=== PATIENT | female | born 1950 | race Caucasian/White ===

== ENCOUNTER 2017-11-02 07:30 | Inpatient (IN) | payer MEDICARE, MEDICAID ==
[~2017-11-02] VITALS: Ht 165.1 cm; Wt 95.3 kg
[~2017-11-02 07:30] MED LIST: ALBU2.5V13 NEB; CITA20TA11 PO; DICY20TA12 PO; FENO145T36 PO; FLUT1AER INH; LEVO125T8 PO; MAX25Tt PO; MONT10TA24 PO; NORCO10T PO; OMEG-107 PO; OMEP20TA5 PO
[2017-12-18 15:43] LABS: BASOPHILS % (AUTO) 0.2 % (0-1); EOSINOPHILS # (AUTO) 0.1 X10'3 (0-0.9); EOSINOPHILS % (AUTO) 0.7 % (0-6); LYMPHOCYTES # (AUTO) 0.9 X10'3 (1.1-4.8); LYMPHOCYTES % (AUTO) 10.2 % (21-51); MEAN CORPUSCULAR HEMOGLOBIN 29.7 PG (27.0-31.0); MEAN CORPUSCULAR HGB CONC 33.6 % (33.0-36.5); MEAN CORPUSCULAR VOLUME 88.4 FL (78-98); MEAN PLATELET VOLUME 7.2 FL (7.4-10.4); MONOCYTES # (AUTO) 0.4 X10'3 (0-0.9); MONOCYTES % (AUTO) 3.9 % (2-12); NEUTROPHILS # (AUTO) 7.9 X10'3 (1.8-7.7); PRE OP HEMATOCRIT 39.9 % (35.0-45.0); PRE OP HEMOGLOBIN 13.4 g/dL (12.0-16.0); PRE OP PLATELET COUNT 384 X10'3 (140-440); RED BLOOD COUNT 4.52 X10'6 (4.20-5.60); RED CELL DISTRIBUTION WIDTH 16.9 % (11.5-14.5)
[2017-12-18] MEDS ORDERED: MIRA25TA PO (15:46)
[2017-12-18 15:52] LABS: PRE OP PROTIME 10.8 SECONDS (9.0-12.0)
[2017-12-18 16:06] LABS: ALBUMIN 3.9 G/DL (3.4-5.0); ALBUMIN/GLOBULIN RATIO 1.2 (1.1-1.5); ALKALINE PHOSPHATASE 78 IU/L (46-116); BLOOD UREA NITROGEN 37 MG/DL (7-18); BUN/CREATININE RATIO 28.7 (6.6-38.0); CALCIUM 9.4 MG/DL (8.5-10.1); CHLORIDE 103 MMOL/L (99-107); CREATININE 1.29 MG/DL (0.40-0.90); PRE OP ALT 28 U/L (30-65); PRE OP ANION GAP 11 (8-16); PRE OP AST 10 U/L (10-37); PRE OP BILIRUB, TOTAL 0.3 MG/DL (0.0-1.0); PRE OP GLUCOSE 150 MG/DL (70-104); PRE OP POTASSIUM 4.7 MMOL/L (3.4-5.1); PRE OP SODIUM 141 MMOL/L (135-145); TOTAL CARBON DIOXIDE 27.5 MMOL/L (24-32); TOTAL PROTEIN 7.2 G/DL (6.4-8.2); eGFR 41 ML/MIN
[2017-12-24] MEDS ORDERED: FLUT16SP2 BOTHNARES (08:52)
[2017-12-24] MEDS ORDERED: ALLO300T2 PO (08:52)
[2017-12-25] VITALS (17 sets, daily range): BP systolic 115–159; BP diastolic 51–98
[2017-12-25] MEDS ORDERED: ringers solution, lacted 1,000 ML IV SCH ×3 (05:00→10:17)
[2017-12-25] MEDS ORDERED: vancomycin inj 1,500 MG in normal saline 300ml IV soln IV ONE (05:30)
[2017-12-25] MEDS ORDERED: ceFAZolin inj. 2,000 MG in dextrose 5%-water 100 ML IV ONE (05:30)
[2017-12-25] MEDS ORDERED: famotidine 20mg tablet PO ONE (05:30)
[2017-12-25] MEDS ORDERED: LIDOcaine 1% (10mg/ml) 2ml vial ONE (06:11)
[2017-12-25] MEDS ORDERED: ROPIVAcaine 0.5% (5mg/ml) 30ml vial ONE ×2 (06:51→07:38)
[2017-12-25] MEDS ORDERED: ketorolac trometh. 30mg/ml inj. ONE (06:51)
[2017-12-25] MEDS ORDERED: vancomycin 1,000mg inj ONE (06:51)
[2017-12-25] MEDS ORDERED: albuterol 2.5 MG/3 ML nebule NEB ONE (07:00)
[2017-12-25] MEDS ORDERED: sevoflurane 250ml liquid IH ONE (07:18)
[2017-12-25] MEDS ORDERED: MIDAZolam 5mg/5ml vial ONE (07:19)
[2017-12-25] MEDS ORDERED: fentaNYL/PF 50MCG/1 ML 2ML syringe ONE ×2 (07:19→09:19)
[2017-12-25] MEDS ORDERED: LIDOcaine 1%/PF (10mg/ml) 5ml vial ONE (07:23)
[2017-12-25] MEDS ORDERED: propofol inj 20 ML IV ONE (07:23)
[2017-12-25] MEDS ORDERED: dexamethasone sod phosphate 4mg/ml inj. ONE (08:00)
[2017-12-25] MEDS ORDERED: ondansetron/PF 4mg/2ml inj ONE (08:01)
[2017-12-25] MEDS ORDERED: NORMAL SALINE IV ONE ×2 (08:10→12:30)
[2017-12-25] MEDS ORDERED: TRANEXAMIC ACID IV ONE ×3 (08:10→12:30)
[2017-12-25] MEDS ORDERED: [UNRECOGNIZED DRUG - OTHER] IV ONE (08:10)
[2017-12-25] MEDS ORDERED: ondansetron/PF 4mg/2ml inj IV PRN ×3 (08:35→10:20)
[2017-12-25] MEDS ORDERED: proCHLORperazine 10 MG/2 ml inj IV PRN (08:35)
[2017-12-25] MEDS ORDERED: morphine 4 MG/ML inj SYRINge IV PRN ×2 (08:35)
[2017-12-25] MEDS ORDERED: meperidine/PF 50mg/ml syringe IV PRN ×3 (08:35)
[2017-12-25] MEDS ORDERED: acetaminophen 325mg tablet PO PRN (09:30)
[2017-12-25] MEDS ORDERED: HYDROmorphone inj. 0.5 MG/0.5 ML DISP.SYRIN IV PRN ×2 (09:30)
[2017-12-25] MEDS ORDERED: diphenhydrAMINE 25mg capsule PO PRN ×2 (09:30)
[2017-12-25] MEDS ORDERED: oxyCODONE IR 5mg (immed. release) tablet PO PRN (09:30)
[2017-12-25] MEDS ORDERED: bisacodyl 10mg suppository rectal RC PRN (09:30)
[2017-12-25] MEDS ORDERED: magnesium hydroxide 30ml (MOM) UD suspension PO PRN (09:30)
[2017-12-25] MEDS ORDERED: ipratropium/albuterol 3ml nebule IH ONE (10:20)
[2017-12-25] MEDS: gabapentin 300mg capsule PO SCH ×2 (13:02→20:34)
[2017-12-25] MEDS: acetaminophen 325mg tablet PO SCH ×2 (13:03→20:34)
[2017-12-25] MEDS: ketorolac tromethamine 15mg/ml inj. IV SCH ×2 (13:03→20:32)
[2017-12-25] MEDS: potassium cl 20mEq in 1/2 NS 1,000 ML IV SCH ×2 (15:36→17:27)
[2017-12-25] MEDS: ceFAZolin 1GM/D5W- ADD-VANTAGE 50 ML IV SCH ×2 (15:36→23:30)
[2017-12-25] MEDS ORDERED: vancomycin/NS 1 GM ADD-VANTAGE 250 ML IV SCH (20:00)
[2017-12-25] MEDS: omega-3 acid ethyl esters 1GM capsule PO SCH (20:33)
[2017-12-25] MEDS: dicyclomine 10 MG capsule PO SCH (20:33)
[2017-12-25] MEDS ORDERED: allopurinol 300 MG tablet PO SCH (21:00)
[2017-12-25] MEDS ORDERED: citalopram 20mg tablet PO SCH (21:00)
[2017-12-25] MEDS ORDERED: fenofibrate 145mg tablet PO SCH (21:00)
[2017-12-25] MEDS ORDERED: sennosides 8.6mg tablet PO SCH (21:00)
[2017-12-26] MEDS: acetaminophen 325mg tablet PO SCH ×3 (01:46→13:03)
[2017-12-26] MEDS: potassium cl 20mEq in 1/2 NS 1,000 ML IV SCH (01:46)
[2017-12-26] MEDS: ketorolac tromethamine 15mg/ml inj. IV SCH ×3 (01:46→13:05)
[2017-12-26 02:32] VITALS: BP 133/68
[2017-12-26 06:27] LABS: BASOPHILS % (AUTO) 0 % (0-1); EOSINOPHILS % (AUTO) 0.1 % (0-6); HEMATOCRIT 32.2 % (35.0-45.0); HEMOGLOBIN 11.1 g/dl (12.0-16.0); LYMPHOCYTES # (AUTO) 1.2 X10'3 (1.1-4.8); LYMPHOCYTES % (AUTO) 12.4 % (21-51); MEAN CORPUSCULAR HEMOGLOBIN 30.5 PG (27.0-31.0); MEAN CORPUSCULAR HGB CONC 34.3 % (33.0-36.5); MEAN CORPUSCULAR VOLUME 88.8 FL (78-98); MEAN PLATELET VOLUME 7.7 FL (7.4-10.4); MONOCYTES # (AUTO) 1.2 X10'3 (0-0.9); MONOCYTES % (AUTO) 12.2 % (2-12); NEUTROPHILS # (AUTO) 7.7 X10'3 (1.8-7.7); NEUTROPHILS % (AUTO) 75.3 % (42-75); PLATELET COUNT 267 X10'3 (140-440); RED BLOOD COUNT 3.63 X10'6 (4.20-5.60); RED CELL DISTRIBUTION WIDTH 16.1 % (11.5-14.5); WHITE BLOOD COUNT 10.1 X10'3 (4.5-11.0)
[2017-12-26 06:31] LABS: ANION GAP 10 (8-16); CHLORIDE 105 MMOL/L (99-107); POTASSIUM 4.4 MMOL/L (3.5-5.1); SODIUM 141 MMOL/L (135-145); TOTAL CARBON DIOXIDE 25.6 MMOL/L (24-32)
[2017-12-26] MEDS ORDERED: pantoprazole 40mg Tablet.DR PO SCH (07:30)
[2017-12-26] MEDS ORDERED: levoTHYROXINE 125mcg tablet PO SCH (08:00)
[2017-12-26] MEDS ORDERED: mirabegron 25mg ER tablet PO SCH (08:00)
[2017-12-26] MEDS ORDERED: fluticasone nasal spray 16GM bottle NS SCH (08:00)
[2017-12-26] MEDS ORDERED: montelukast 10mg tablet PO SCH (08:00)
[2017-12-26] MEDS ORDERED: triamterene/HCTZ 37.5/25mg tablet PO SCH (08:00)
[2017-12-26] MEDS ORDERED: aspirin 325mg tablet PO SCH (08:30)
[2017-12-26] MEDS: oxyCODONE IR 5mg (immed. release) tablet PO PRN ×2 (08:58→13:04)
[2017-12-26] MEDS: omega-3 acid ethyl esters 1GM capsule PO SCH (08:59)
[2017-12-26] MEDS: gabapentin 300mg capsule PO SCH ×2 (08:59→13:03)
[2017-12-26] MEDS: dicyclomine 10 MG capsule PO SCH (08:59)
[2017-12-26 10:00] VITALS: BP 147/71
[2017-12-26] MEDS ORDERED: ipratropium/albuterol 3ml nebule NEB PRN (11:05)
[2017-12-27] MEDS ORDERED: celeCOXIB 100mg capsule PO SCH (08:00)
[2017-12-27] MEDS ORDERED: acetaminophen 325mg tablet PO PRN (09:30)
== END 2017-12-26 13:00 | disposition home or self-care (01) | DRG 483 ==
LOC: EDSTATUS 11-06 09:45 → PAS IN 12-25 05:35 → EDSTATUS 12-25 07:30 → ORTHO 4S 12-25 10:55
PROVIDERS: ADMIT Orthopaedic Surgery; ATTEND Orthopaedic Surgery
PROC: 0LS30ZZ Reposition Right Upper Arm Tendon, Open Approach (ICD-10-PCS; 2017-12-25)
PROC: 3E0T3BZ Introduction of Anesthetic Agent into Peripheral Nerves and Plexi, Percutaneous Approach (ICD-10-PCS; 2017-12-25)
PROC: 0RRJ00Z Replacement of Right Shoulder Joint with Reverse Ball and Socket Synthetic Substitute, Open Approach (ICD-10-PCS; principal; 2017-12-25 07:21)
DX: M19.011 Primary osteoarthritis, right shoulder (principal); D62 Acute posthemorrhagic anemia; J44.9 Chronic obstructive pulmonary disease, unspecified; I10 Essential (primary) hypertension; E03.9 Hypothyroidism, unspecified; K21.9 Gastro-esophageal reflux disease without esophagitis; K58.9 Irritable bowel syndrome, unspecified; M06.4 Inflammatory polyarthropathy; M75.111 Incomplete rotator cuff tear or rupture of right shoulder, not specified as traumatic; M75.21 Bicipital tendinitis, right shoulder; F32.9 Major depressive disorder, single episode, unspecified; M10.9 Gout, unspecified; Z96.612 Presence of left artificial shoulder joint; Z90.5 Acquired absence of kidney; Z79.899 Other long term (current) drug therapy; Z79.82 Long term (current) use of aspirin; Z88.8 Allergy status to other drugs, medicaments and biological substances; Z88.1 Allergy status to other antibiotic agents; Z82.61 Family history of arthritis; Z82.0 Family history of epilepsy and other diseases of the nervous system
CPT/HCPCS: 36415; 80051; 80053; 85025; 85610; 85730; 86885; 86900; 86901; 87070; 93005; 94640; 94760; 97110; 97116; 97162; A4565; A7000; A9272; J0690; J1100; J1885; J2001; J2250; J2405; J2704; J2795; J3010; J3370; J3490; J7030; J7060; J7120

== ENCOUNTER 2018-09-16 19:07 | Emergency (ER) | payer MEDICARE, MEDICAID ==
[~2018-09-16] VITALS: Ht 165.1 cm; Wt 100.0 kg
[~2018-09-16 19:07] MED LIST changes: +ALLO300T2 PO; +CITA-278 PO; -CITA20TA11 PO; +FLUT16SP2 BOTHNARES; +MIRA25TA PO
[2018-09-16] MEDS: ondansetron 4mg rapidly disintigrating tab PO ONE (20:20)
[2018-09-16] MEDS: morphine 10mg/ml inj. IM ONE (20:20)
[2018-09-16 20:46] VITALS: BP 119/86
== END 2018-09-16 20:48 | disposition home or self-care (01) ==
LOC: ER 19:07
DX: M54.9 Dorsalgia, unspecified (principal); E78.00 Pure hypercholesterolemia, unspecified; I10 Essential (primary) hypertension; J45.909 Unspecified asthma, uncomplicated; K21.9 Gastro-esophageal reflux disease without esophagitis; E11.9 Type 2 diabetes mellitus without complications; M19.90 Unspecified osteoarthritis, unspecified site; G89.29 Other chronic pain; E66.9 Obesity, unspecified; Z90.49 Acquired absence of other specified parts of digestive tract; Z90.710 Acquired absence of both cervix and uterus; Z98.890 Other specified postprocedural states; Z88.8 Allergy status to other drugs, medicaments and biological substances; Z79.899 Other long term (current) drug therapy
CPT/HCPCS: 71046; 96372; 99283; J2270

== ENCOUNTER 2019-07-06 19:11 | Emergency (ER) | payer MEDICARE, MEDICAID ==
[~2019-07-06] VITALS: Ht 163.8 cm; Wt 99.9 kg
[~2019-07-06 19:11] MED LIST changes: -CITA-278 PO; +CITA20TA28 PO
[2019-07-06] MEDS ORDERED: CefTRIAXone 2gm/D5W 50ml 50 ML IV ONE (19:55)
[2019-07-06 20:10] LABS: BASOPHILS # (AUTO) 0.1 X10'3 (0-0.2); BASOPHILS % (AUTO) 1.5 % (0-1); EOSINOPHILS # (AUTO) 0.1 X10'3 (0-0.9); EOSINOPHILS % (AUTO) 1.9 % (0-6); HEMATOCRIT 39.2 % (35.0-45.0); HEMOGLOBIN 13.5 g/dl (12.0-16.0); LYMPHOCYTES # (AUTO) 1.6 X10'3 (1.1-4.8); LYMPHOCYTES % (AUTO) 21.3 % (21-51); MEAN CORPUSCULAR HEMOGLOBIN 30.9 PG (27.0-31.0); MEAN CORPUSCULAR HGB CONC 34.4 g/dL (33.0-36.5); MEAN PLATELET VOLUME 6.8 FL (7.4-10.4); MONOCYTES # (AUTO) 1.2 X10'3 (0-0.9); MONOCYTES % (AUTO) 15.5 % (2-12); NEUTROPHILS # (AUTO) 4.5 X10'3 (1.8-7.7); NEUTROPHILS % (AUTO) 59.8 % (42-75); PLATELET COUNT 392 X10'3 (140-440); RED BLOOD COUNT 4.36 X10'6 (4.20-5.60); RED CELL DISTRIBUTION WIDTH 14.4 % (11.5-14.5); WHITE BLOOD COUNT 7.5 X10'3 (4.5-11.0)
[2019-07-06 20:23] LABS: PARTIAL THROMBOPLASTIN TIME 28 SECONDS (22-32)
--- NOTE | 2019-07-06 20:25 | NUR ---
Pt straight cathed for urine specimen as ordered. Pt tolerated well. Antibiotic infusion started as ordered after blood cultures and urine specimen obtained.
[2019-07-06 20:33] LABS: CLARITY,URINE CLEAR (Clear); COLOR,URINE YELLOW (Yellow); GLUCOSE, URINE NEGATIVE (Neg); KETONES,URINE NEGATIVE (Neg); LEUKOCYTE ESTERASE ,URINE NEGATIVE (Neg); NITRITES, URINE NEGATIVE (Neg); OCCULT BLOOD,URINE NEGATIVE (Neg); PROTEIN,URINE NEGATIVE (Neg); UROBILINOGEN,URINE 0.2 E.U/dL (0.2-1.0)
--- NOTE | 2019-07-06 20:33 | NUR ---
Pt's IV abx paused and IV site saline locked to transport to radiology for imaging.
[2019-07-06 20:36] LABS: ALANINE AMINOTRANSFERASE 29 U/L (12-78); ALBUMIN 3.6 G/DL (3.4-5.0); ALBUMIN/GLOBULIN RATIO 0.9 (1.1-1.5); ALKALINE PHOSPHATASE 68 IU/L (46-116); ANION GAP 8 (8-16); ASPARTATE AMINO TRANSFERASE 17 U/L (10-37); BILIRUBIN,TOTAL 0.3 MG/DL (0.1-1.0); BLOOD UREA NITROGEN 32 MG/DL (7-18); BUN/CREATININE RATIO 21.9 (6.6-38.0); CALCIUM 8.8 MG/DL (8.5-10.1); CHLORIDE 101 MMOL/L (99-107); CREATININE 1.46 MG/DL (0.40-0.90); GLUCOSE 94 MG/DL (70-104); MAGNESIUM 1.7 MG/DL (1.5-2.4); POTASSIUM 4.1 MMOL/L (3.5-5.1); SODIUM 138 MMOL/L (135-145); TOTAL PROTEIN 7.4 G/DL (6.4-8.2); eGFR 35 ML/MIN
[2019-07-06 20:40] LABS: TOTAL CELLS COUNTED 100
[2019-07-06 20:41] LABS: PLATELET ESTIMATE NORMAL
[2019-07-06 20:51] LABS: UA COLLECTION TYPE NON-SPECIFIED
--- NOTE | 2019-07-06 20:54 | NUR ---
Pt returned from radiology, IV abx continued.
[2019-07-06] MEDS ORDERED: SULF1TAB49 PO (22:27)
[2019-07-06] MEDS ORDERED: CEPH500C5 PO (22:27)
[2019-07-06 22:44] VITALS: BP 132/79
== END 2019-07-06 22:51 | disposition home or self-care (01) ==
LOC: ER 19:12
DX: L03.314 Cellulitis of groin (principal); E78.00 Pure hypercholesterolemia, unspecified; I10 Essential (primary) hypertension; J45.909 Unspecified asthma, uncomplicated; K21.9 Gastro-esophageal reflux disease without esophagitis; E11.9 Type 2 diabetes mellitus without complications; M19.90 Unspecified osteoarthritis, unspecified site; G89.29 Other chronic pain; Z90.49 Acquired absence of other specified parts of digestive tract; Z98.890 Other specified postprocedural states; Z90.710 Acquired absence of both cervix and uterus; Z88.1 Allergy status to other antibiotic agents; Z88.8 Allergy status to other drugs, medicaments and biological substances; Z79.899 Other long term (current) drug therapy
CPT/HCPCS: 36415; 71045; 72192; 80053; 81003; 83605; 83735; 84145; 85025; 85610; 85730; 87040; 93005; 93971; 96365; 99284; J0696; P9612

== ENCOUNTER 2019-09-12 17:36 | Emergency (ER) | payer MEDICARE, MEDICAID ==
[~2019-09-12] VITALS: Ht 162.6 cm; Wt 97.7 kg
[2019-09-12 17:51] VITALS: BP 176/101
[2019-09-12] MEDS ORDERED: ipratropium/albuterol 3ml nebule NEB ONE (18:30)
[2019-09-12 19:18] LABS: BASOPHILS # (AUTO) 0.1 X10'3 (0-0.2); BASOPHILS % (AUTO) 0.7 % (0-1); EOSINOPHILS # (AUTO) 0.1 X10'3 (0-0.9); HEMATOCRIT 42.8 % (35.0-45.0); HEMOGLOBIN 14.4 g/dl (12.0-16.0); LYMPHOCYTES # (AUTO) 1.9 X10'3 (1.1-4.8); LYMPHOCYTES % (AUTO) 22.8 % (21-51); MEAN CORPUSCULAR HEMOGLOBIN 30.3 PG (27.0-31.0); MEAN CORPUSCULAR HGB CONC 33.7 g/dL (33.0-36.5); MEAN CORPUSCULAR VOLUME 89.9 FL (78-98); MEAN PLATELET VOLUME 6.9 FL (7.4-10.4); MONOCYTES # (AUTO) 0.9 X10'3 (0-0.9); MONOCYTES % (AUTO) 11.5 % (2-12); NEUTROPHILS # (AUTO) 5.2 X10'3 (1.8-7.7); PLATELET COUNT 407 X10'3 (140-440); RED BLOOD COUNT 4.77 X10'6 (4.20-5.60); RED CELL DISTRIBUTION WIDTH 14.5 % (11.5-14.5); WHITE BLOOD COUNT 8.1 X10'3 (4.5-11.0)
[2019-09-12 19:29] LABS: PARTIAL THROMBOPLASTIN TIME 30 SECONDS (22-32)
[2019-09-12 19:31] LABS: ALANINE AMINOTRANSFERASE 35 U/L (12-78); ALBUMIN 4.1 G/DL (3.4-5.0); ALBUMIN/GLOBULIN RATIO 1.3 (1.1-1.5); ALKALINE PHOSPHATASE 75 IU/L (46-116); ANION GAP 6 (8-16); ASPARTATE AMINO TRANSFERASE 14 U/L (10-37); BILIRUBIN,TOTAL 0.2 MG/DL (0.1-1.0); BLOOD UREA NITROGEN 27 MG/DL (7-18); BUN/CREATININE RATIO 17.1 (6.6-38.0); CALCIUM 9.4 MG/DL (8.5-10.1); CHLORIDE 103 MMOL/L (99-107); CREATININE 1.58 MG/DL (0.40-0.90); GLUCOSE 105 MG/DL (70-104); SODIUM 139 MMOL/L (135-145); TOTAL CARBON DIOXIDE 30.1 MMOL/L (24-32); TOTAL PROTEIN 7.2 G/DL (6.4-8.2); eGFR 32 ML/MIN
[2019-09-12] MEDS ORDERED: ALBU8HFA PO (19:50)
[2019-09-12] MEDS ORDERED: PRED20TA PO (19:50)
== END 2019-09-12 19:58 | disposition home or self-care (01) ==
LOC: ER 17:36
DX: J45.901 Unspecified asthma with (acute) exacerbation (principal); J06.9 Acute upper respiratory infection, unspecified; E78.00 Pure hypercholesterolemia, unspecified; I10 Essential (primary) hypertension; K21.9 Gastro-esophageal reflux disease without esophagitis; E11.9 Type 2 diabetes mellitus without complications; M19.90 Unspecified osteoarthritis, unspecified site; G89.29 Other chronic pain; Z90.49 Acquired absence of other specified parts of digestive tract; Z90.710 Acquired absence of both cervix and uterus; Z98.890 Other specified postprocedural states; Z88.1 Allergy status to other antibiotic agents; Z88.8 Allergy status to other drugs, medicaments and biological substances; Z79.899 Other long term (current) drug therapy
CPT/HCPCS: 36415; 71045; 80053; 85025; 85610; 85730; 87502; 87503; 93005; 94010; 94640; 94760; 99284

== ENCOUNTER 2020-01-29 18:08 | Emergency (ER) | payer MEDICARE, MEDICAID ==
[~2020-01-29] VITALS: Ht 165.1 cm; Wt 102.0 kg
[~2020-01-29 18:08] MED LIST changes: +FENO145T26 PO; -FENO145T36 PO; -MONT10TA24 PO; +MONT10TA26 PO
[2020-01-29 19:20] LABS: BASOPHILS # (AUTO) 0.1 X10'3 (0-0.2); EOSINOPHILS # (AUTO) 0.1 X10'3 (0-0.9); EOSINOPHILS % (AUTO) 0.9 % (0-6); HEMATOCRIT 41.5 % (35.0-45.0); HEMOGLOBIN 13.9 g/dl (12.0-16.0); LYMPHOCYTES # (AUTO) 0.5 X10'3 (1.1-4.8); LYMPHOCYTES % (AUTO) 6.7 % (21-51); MEAN CORPUSCULAR HEMOGLOBIN 30.8 PG (27.0-31.0); MEAN CORPUSCULAR HGB CONC 33.6 g/dL (33.0-36.5); MEAN CORPUSCULAR VOLUME 91.8 FL (78-98); MEAN PLATELET VOLUME 7.5 FL (7.4-10.4); MONOCYTES # (AUTO) 0.2 X10'3 (0-0.9); MONOCYTES % (AUTO) 2.5 % (2-12); NEUTROPHILS # (AUTO) 6.2 X10'3 (1.8-7.7); NEUTROPHILS % (AUTO) 87.9 % (42-75); PLATELET COUNT 347 X10'3 (140-440); RED BLOOD COUNT 4.52 X10'6 (4.20-5.60); RED CELL DISTRIBUTION WIDTH 14.1 % (11.5-14.5)
[2020-01-29 19:23] LABS: PARTIAL THROMBOPLASTIN TIME 29 SECONDS (22-32)
[2020-01-29 19:24] LABS: ALANINE AMINOTRANSFERASE 24 U/L (12-78); ALBUMIN 3.9 G/DL (3.4-5.0); ALBUMIN/GLOBULIN RATIO 1.3 (1.1-1.5); ALKALINE PHOSPHATASE 84 IU/L (46-116); ANION GAP 9 (8-16); BILIRUBIN,TOTAL 0.3 MG/DL (0.1-1.0); BLOOD UREA NITROGEN 29 MG/DL (7-18); BUN/CREATININE RATIO 19.5 (6.6-38.0); CALCIUM 8.9 MG/DL (8.5-10.1); CHLORIDE 103 MMOL/L (99-107); CREATININE 1.49 MG/DL (0.40-0.90); SODIUM 139 MMOL/L (135-145); TOTAL CARBON DIOXIDE 27.4 MMOL/L (24-32); eGFR 34 ML/MIN
[2020-01-29 19:31] LABS: D-DIMER 0.31 MG/L FEU (0-0.50)
[2020-01-29 19:36] LABS: GLUCOSE 199 MG/DL (70-104); POTASSIUM 4.3 MMOL/L (3.5-5.1)
[2020-01-29 19:43] LABS: ASPARTATE AMINO TRANSFERASE 22 U/L (10-37)
[2020-01-29 20:29] VITALS: BP 142/87
[2020-01-29 21:10] LABS: TOTAL CELLS COUNTED 100
[2020-01-29 21:11] LABS: PLATELET ESTIMATE NORMAL; TOXIC GRANULATION 1+
== END 2020-01-29 20:31 | disposition home or self-care (01) ==
LOC: ER 18:09
DX: M94.0 Chondrocostal junction syndrome [Tietze] (principal); E78.00 Pure hypercholesterolemia, unspecified; I10 Essential (primary) hypertension; K21.9 Gastro-esophageal reflux disease without esophagitis; J45.909 Unspecified asthma, uncomplicated; E11.9 Type 2 diabetes mellitus without complications; M19.90 Unspecified osteoarthritis, unspecified site; G89.29 Other chronic pain; Z98.890 Other specified postprocedural states; Z90.49 Acquired absence of other specified parts of digestive tract; Z90.710 Acquired absence of both cervix and uterus; Z88.1 Allergy status to other antibiotic agents; Z88.8 Allergy status to other drugs, medicaments and biological substances; Z79.899 Other long term (current) drug therapy
CPT/HCPCS: 36415; 71045; 80053; 84484; 85025; 85379; 85610; 85730; 93005; 99285

== ENCOUNTER 2020-05-12 14:28 | Emergency (ER) | payer MEDICARE, MEDICAID ==
[~2020-05-12] VITALS: Ht 165.1 cm; Wt 100.3 kg
[2020-05-12 15:41] LABS: BASOPHILS # (AUTO) 0.1 X10'3 (0-0.2); BASOPHILS % (AUTO) 1.6 % (0-1); EOSINOPHILS # (AUTO) 0.3 X10'3 (0-0.9); EOSINOPHILS % (AUTO) 5.1 % (0-6); HEMATOCRIT 38.4 % (35.0-45.0); HEMOGLOBIN 12.6 g/dl (12.0-16.0); LYMPHOCYTES # (AUTO) 1.5 X10'3 (1.1-4.8); LYMPHOCYTES % (AUTO) 29.2 % (21-51); MEAN CORPUSCULAR HEMOGLOBIN 30.1 PG (27.0-31.0); MEAN CORPUSCULAR HGB CONC 32.9 g/dL (33.0-36.5); MEAN CORPUSCULAR VOLUME 91.5 FL (78-98); MEAN PLATELET VOLUME 6.8 FL (7.4-10.4); MONOCYTES # (AUTO) 0.8 X10'3 (0-0.9); MONOCYTES % (AUTO) 15.4 % (2-12); NEUTROPHILS # (AUTO) 2.5 X10'3 (1.8-7.7); NEUTROPHILS % (AUTO) 48.7 % (42-75); PLATELET COUNT 484 X10'3 (140-440); WHITE BLOOD COUNT 5.1 X10'3 (4.5-11.0)
[2020-05-12 15:46] LABS: D-DIMER 3.64 MG/L FEU (0-0.50)
[2020-05-12 15:53] LABS: ALANINE AMINOTRANSFERASE 20 U/L (12-78); ALBUMIN/GLOBULIN RATIO 1.3 (1.1-1.5); ALKALINE PHOSPHATASE 72 IU/L (46-116); ANION GAP 7 (8-16); ASPARTATE AMINO TRANSFERASE 13 U/L (10-37); BILIRUBIN,TOTAL 0.3 MG/DL (0.1-1.0); BLOOD UREA NITROGEN 27 MG/DL (7-18); BUN/CREATININE RATIO 21.1 (6.6-38.0); CALCIUM 9.7 MG/DL (8.5-10.1); CHLORIDE 104 MMOL/L (99-107); CREATININE 1.28 MG/DL (0.40-0.90); GLUCOSE 93 MG/DL (70-104); POTASSIUM 4.3 MMOL/L (3.5-5.1); SODIUM 138 MMOL/L (135-145); TOTAL CARBON DIOXIDE 27.2 MMOL/L (24-32); TOTAL PROTEIN 7.2 G/DL (6.4-8.2); eGFR 41 ML/MIN
[2020-05-12] MEDS ORDERED: iohexol 350MG/ML 100ml bottle IV ONE (16:13)
--- NOTE | 2020-05-12 16:27 | NUR ---
Pt returned from CT scan via w/c. Pt assisted to Restroom by Karen Cabello RN.
[2020-05-12 16:49] LABS: TOTAL CELLS COUNTED 100
[2020-05-12 17:01] LABS: PLATELET ESTIMATE INCREASED; POLYCHROMASIA FEW
[2020-05-12] MEDS ORDERED: ipratropium/albuterol 3ml nebule NEB ONE (17:10)
[2020-05-12] MEDS ORDERED: methylPREDNISolone sod succ 125mg/2ml vial IV ONE (17:10)
[2020-05-12 18:16] VITALS: BP 141/86
== END 2020-05-12 18:18 | disposition home or self-care (01) ==
LOC: ER 14:29
DX: J45.901 Unspecified asthma with (acute) exacerbation (principal); R06.02 Shortness of breath; E78.00 Pure hypercholesterolemia, unspecified; I10 Essential (primary) hypertension; K21.9 Gastro-esophageal reflux disease without esophagitis; E11.9 Type 2 diabetes mellitus without complications; M19.90 Unspecified osteoarthritis, unspecified site; G89.29 Other chronic pain; Z90.89 Acquired absence of other organs; Z90.710 Acquired absence of both cervix and uterus; Z98.890 Other specified postprocedural states; Z88.1 Allergy status to other antibiotic agents; Z88.8 Allergy status to other drugs, medicaments and biological substances; Z79.899 Other long term (current) drug therapy
CPT/HCPCS: 36415; 71045; 71275; 80053; 83880; 84484; 85007; 85025; 85379; 93005; 93971; 94640; 96374; 99285; J2930; Q9967; 94760

== ENCOUNTER 2020-11-14 00:16 | Emergency (ER) | payer MEDICARE, MEDICAID ==
[~2020-11-14] VITALS: Ht 165.1 cm; Wt 98.0 kg
[~2020-11-14 00:16] MED LIST changes: -MONT10TA26 PO; +MONT10TA32 PO; -OMEG-107 PO; +OMEG-220 PO
--- NOTE | 2020-11-14 00:25 | NUR ---
CALLED ADVICE NURSE AND WAS RECOMMENDED ER FOR NAUSEA
--- NOTE | 2020-11-14 00:25 | NUR ---
DENIES BLOODY STOOLS AND NO EMESIS
[2020-11-14] MEDS ORDERED: ondansetron/PF 4mg/2ml inj IV ONE (00:50)
[2020-11-14] MEDS ORDERED: morphine 4 MG/ML inj SYRINge IV ONE (00:50)
[2020-11-14] MEDS ORDERED: normal saline 1000ml 1,000 ML IV ONE (00:50)
[2020-11-14] MEDS ORDERED: morphine 2 MG/ML inj. syringe IV ONE ×2 (01:15→01:55)
[2020-11-14 01:41] LABS: BASOPHILS # (AUTO) 0.1 X10'3 (0-0.2); BASOPHILS % (AUTO) 0.9 % (0-1); EOSINOPHILS # (AUTO) 0.2 X10'3 (0-0.9); EOSINOPHILS % (AUTO) 2.6 % (0-6); HEMATOCRIT 35.9 % (35.0-45.0); HEMOGLOBIN 12.2 g/dl (12.0-16.0); LYMPHOCYTES # (AUTO) 1.2 X10'3 (1.1-4.8); LYMPHOCYTES % (AUTO) 20.8 % (21-51); MEAN CORPUSCULAR HEMOGLOBIN 29.7 PG (27.0-31.0); MEAN CORPUSCULAR VOLUME 87.3 FL (78-98); MEAN PLATELET VOLUME 7.2 FL (7.4-10.4); MONOCYTES # (AUTO) 0.8 X10'3 (0-0.9); MONOCYTES % (AUTO) 13.1 % (2-12); NEUTROPHILS # (AUTO) 3.7 X10'3 (1.8-7.7); NEUTROPHILS % (AUTO) 62.6 % (42-75); PLATELET COUNT 311 X10'3 (140-440); RED BLOOD COUNT 4.11 X10'6 (4.20-5.60); RED CELL DISTRIBUTION WIDTH 14.5 % (11.5-14.5)
[2020-11-14 01:52] LABS: ALANINE AMINOTRANSFERASE 27 U/L (12-78); ALBUMIN 3.6 G/DL (3.4-5.0); ALBUMIN/GLOBULIN RATIO 1.1 (1.1-1.5); ALKALINE PHOSPHATASE 84 IU/L (46-116); ANION GAP 7 (8-16); ASPARTATE AMINO TRANSFERASE 11 U/L (10-37); BILIRUBIN,TOTAL 0.2 MG/DL (0.1-1.0); BLOOD UREA NITROGEN 32 MG/DL (7-18); BUN/CREATININE RATIO 26.2 (6.6-38.0); CALCIUM 9.2 MG/DL (8.5-10.1); CHLORIDE 102 MMOL/L (99-107); CREATININE 1.22 MG/DL (0.40-0.90); GLUCOSE 125 MG/DL (70-104); POTASSIUM 3.7 MMOL/L (3.5-5.1); SODIUM 136 MMOL/L (135-145); TOTAL CARBON DIOXIDE 27.4 MMOL/L (24-32); TOTAL PROTEIN 6.8 G/DL (6.4-8.2); eGFR 43 ML/MIN
[2020-11-14] MEDS ORDERED: metroNIDAZOLE 500mg tablet PO ONE (02:55)
[2020-11-14 03:00] LABS: CLARITY,URINE CLEAR (Clear); COLOR,URINE YELLOW (Yellow); GLUCOSE, URINE NEGATIVE (Neg); KETONES,URINE NEGATIVE (Neg); LEUKOCYTE ESTERASE ,URINE SMALL (Neg); NITRITES, URINE NEGATIVE (Neg); OCCULT BLOOD,URINE NEGATIVE (Neg); PROTEIN,URINE NEGATIVE (Neg); UROBILINOGEN,URINE 0.2 E.U/dL (0.2-1.0)
[2020-11-14 03:09] LABS: UA COLLECTION TYPE CLN CATCH MIDSTREAM
[2020-11-14 03:10] LABS: BACTERIA,URINE NONE SEEN /HPF (Neg); RBC,URINE NONE SEEN /HPF (0-2); SQUAMOUS EPITHELIAL CELL,UR FEW /LPF (FEW); WBC,URINE 0-4 /HPF (0-4)
[2020-11-14] MEDS ORDERED: ciprofloxacin 250mg tablet PO ONE (03:25)
[2020-11-14] MEDS ORDERED: CIPR-260 PO (03:25)
[2020-11-14 03:50] VITALS: BP 135/70
== END 2020-11-14 04:11 | disposition home or self-care (01) ==
LOC: ER 00:16
DX: N39.0 Urinary tract infection, site not specified (principal); R10.84 Generalized abdominal pain; R11.0 Nausea; R19.7 Diarrhea, unspecified; E78.00 Pure hypercholesterolemia, unspecified; I10 Essential (primary) hypertension; J45.909 Unspecified asthma, uncomplicated; K21.9 Gastro-esophageal reflux disease without esophagitis; E11.9 Type 2 diabetes mellitus without complications; M19.90 Unspecified osteoarthritis, unspecified site; G89.29 Other chronic pain; Z90.89 Acquired absence of other organs; Z90.49 Acquired absence of other specified parts of digestive tract; Z90.710 Acquired absence of both cervix and uterus; Z98.890 Other specified postprocedural states; Z88.1 Allergy status to other antibiotic agents; Z88.8 Allergy status to other drugs, medicaments and biological substances; Z79.2 Long term (current) use of antibiotics; Z79.899 Other long term (current) drug therapy
CPT/HCPCS: 36415; 80053; 81001; 83605; 84145; 85025; 87040; 87088; 96361; 96374; 96375; 96376; 99284; J2270; J2405; J7030; J3490

== ENCOUNTER 2021-08-25 15:29 | Emergency (ER) | payer MEDICARE, MEDICAID ==
[~2021-08-25] VITALS: Ht 165.1 cm; Wt 97.7 kg
[~2021-08-25 15:29] MED LIST changes: +CIPR-260 PO; +MONT-40 PO; -MONT10TA32 PO
[2021-08-25 17:04] LABS: CLARITY,URINE CLEAR (Clear); COLOR,URINE YELLOW (Yellow); GLUCOSE, URINE NEGATIVE (Neg); KETONES,URINE NEGATIVE (Neg); LEUKOCYTE ESTERASE ,URINE SMALL (Neg); NITRITES, URINE NEGATIVE (Neg); OCCULT BLOOD,URINE NEGATIVE (Neg); PROTEIN,URINE NEGATIVE (Neg); UROBILINOGEN,URINE 0.2 E.U/dL (0.2-1.0)
[2021-08-25 17:04] LABS: BASOPHILS # (AUTO) 0.1 X10'3 (0-0.2); BASOPHILS % (AUTO) 0.9 % (0-1); EOSINOPHILS # (AUTO) 0.1 X10'3 (0-0.9); EOSINOPHILS % (AUTO) 2.4 % (0-6); HEMATOCRIT 41.4 % (35.0-45.0); HEMOGLOBIN 14.3 g/dl (12.0-16.0); LYMPHOCYTES # (AUTO) 1.2 X10'3 (1.1-4.8); LYMPHOCYTES % (AUTO) 19.1 % (21-51); MEAN CORPUSCULAR HGB CONC 34.5 g/dL (33.0-36.5); MEAN CORPUSCULAR VOLUME 89.9 FL (78-98); MEAN PLATELET VOLUME 7.1 FL (7.4-10.4); MONOCYTES # (AUTO) 0.8 X10'3 (0-0.9); MONOCYTES % (AUTO) 12.6 % (2-12); NEUTROPHILS # (AUTO) 3.9 X10'3 (1.8-7.7); PLATELET COUNT 290 X10'3 (140-440); RED CELL DISTRIBUTION WIDTH 14.3 % (11.5-14.5)
[2021-08-25 17:09] LABS: UA COLLECTION TYPE CLN CATCH MIDSTREAM
[2021-08-25 17:22] LABS: ALANINE AMINOTRANSFERASE 35 U/L (12-78); ALBUMIN/GLOBULIN RATIO 1.3 (1.1-1.5); ALKALINE PHOSPHATASE 94 IU/L (46-116); ANION GAP 10 (8-16); ASPARTATE AMINO TRANSFERASE 18 U/L (10-37); BILIRUBIN,TOTAL 0.3 MG/DL (0.1-1.0); BLOOD UREA NITROGEN 29 MG/DL (7-18); CALCIUM 8.9 MG/DL (8.5-10.1); CHLORIDE 104 MMOL/L (99-107); CREATININE 1.16 MG/DL (0.40-0.90); GLUCOSE 117 MG/DL (70-104); LIPASE 136 U/L (73-393); POTASSIUM 3.9 MMOL/L (3.5-5.1); SODIUM 141 MMOL/L (135-145); TOTAL CARBON DIOXIDE 26.7 MMOL/L (24-32); TOTAL PROTEIN 7.2 G/DL (6.4-8.2); eGFR 46 ML/MIN
[2021-08-25 17:27] LABS: WBC,URINE 0-4 /HPF (0-4)
[2021-08-25 17:28] LABS: BACTERIA,URINE FEW /HPF (Neg)
[2021-08-25 17:30] LABS: RBC,URINE 0-2 /HPF (0-2)
[2021-08-25 17:36] LABS: SQUAMOUS EPITHELIAL CELL,UR MODERATE /LPF (FEW)
[2021-08-25] MEDS ORDERED: normal saline 1000ML IV soln IVB ONE (18:55)
[2021-08-25] MEDS ORDERED: ondansetron/PF 4mg/2ml inj IV ONE (18:55)
[2021-08-25] MEDS ORDERED: morphine 4 MG/ML inj SYRINge IV PRN (18:55)
--- NOTE | 2021-08-25 19:00 | NUR ---
PT ROOMED TO BED 7
--- NOTE | 2021-08-25 19:12 | NUR ---
PT TO CT
[2021-08-25] MEDS ORDERED: ketorolac trometh. 30mg/ml inj. IV ONE (19:30)
[2021-08-25] MEDS ORDERED: CYCL-1 PO (20:27)
[2021-08-25] MEDS ORDERED: HYDR-3965 PO (20:27)
[2021-08-25 20:37] VITALS: BP 152/78
== END 2021-08-25 20:40 | disposition home or self-care (01) ==
LOC: ER 15:29
DX: R10.84 Generalized abdominal pain (principal); R07.89 Other chest pain; R00.0 Tachycardia, unspecified; E78.00 Pure hypercholesterolemia, unspecified; J45.909 Unspecified asthma, uncomplicated; K21.9 Gastro-esophageal reflux disease without esophagitis; E11.9 Type 2 diabetes mellitus without complications; M19.90 Unspecified osteoarthritis, unspecified site; G89.29 Other chronic pain; Z90.89 Acquired absence of other organs; Z90.49 Acquired absence of other specified parts of digestive tract; Z90.710 Acquired absence of both cervix and uterus; Z98.890 Other specified postprocedural states; Z88.1 Allergy status to other antibiotic agents; Z88.8 Allergy status to other drugs, medicaments and biological substances; Z79.2 Long term (current) use of antibiotics; Z79.899 Other long term (current) drug therapy
CPT/HCPCS: 36415; 74176; 80053; 81001; 83690; 85025; 87088; 96374; 96375; 99284; J1885; J2405; J7030

== ENCOUNTER 2021-09-01 15:33 | Emergency (ER) | payer MEDICARE, MEDICAID ==
[~2021-09-01] VITALS: Ht 165.1 cm; Wt 97.7 kg
[~2021-09-01 15:33] MED LIST changes: +CYCL-1 PO; +HYDR-3965 PO
[2021-09-01] MEDS ORDERED: HYDROcodone/acetaminophen 5mg/325mg tablet PO ONE (16:10)
[2021-09-01] MEDS ORDERED: ketorolac trometh. 30mg/ml inj. IV ONE (16:10)
[2021-09-01] MEDS ORDERED: orphenadrine citrate 60mg/2ml inj. IM ONE (16:10)
[2021-09-01] MEDS ORDERED: LIDOcaine 5% patch TP ONE (16:15)
[2021-09-01 16:47] LABS: EOSINOPHILS # (AUTO) 0.2 X10'3 (0-0.9); EOSINOPHILS % (AUTO) 3.6 % (0-6); HEMATOCRIT 40.1 % (35.0-45.0); HEMOGLOBIN 13.6 g/dl (12.0-16.0); LYMPHOCYTES # (AUTO) 1.1 X10'3 (1.1-4.8); LYMPHOCYTES % (AUTO) 23.8 % (21-51); MEAN CORPUSCULAR HEMOGLOBIN 30.6 PG (27.0-31.0); MEAN CORPUSCULAR VOLUME 90.1 FL (78-98); MEAN PLATELET VOLUME 7.2 FL (7.4-10.4); MONOCYTES # (AUTO) 0.5 X10'3 (0-0.9); MONOCYTES % (AUTO) 11.5 % (2-12); NEUTROPHILS # (AUTO) 2.8 X10'3 (1.8-7.7); NEUTROPHILS % (AUTO) 60.1 % (42-75); PLATELET COUNT 267 X10'3 (140-440); RED BLOOD COUNT 4.46 X10'6 (4.20-5.60); RED CELL DISTRIBUTION WIDTH 14.2 % (11.5-14.5); WHITE BLOOD COUNT 4.7 X10'3 (4.5-11.0)
[2021-09-01 17:08] LABS: ALANINE AMINOTRANSFERASE 27 U/L (12-78); ALBUMIN 3.8 G/DL (3.4-5.0); ALBUMIN/GLOBULIN RATIO 1.2 (1.1-1.5); ALKALINE PHOSPHATASE 91 IU/L (46-116); ANION GAP 11 (8-16); ASPARTATE AMINO TRANSFERASE 17 U/L (10-37); BILIRUBIN,TOTAL 0.4 MG/DL (0.1-1.0); BLOOD UREA NITROGEN 31 MG/DL (7-18); BUN/CREATININE RATIO 30.1 (6.6-38.0); CALCIUM 9.2 MG/DL (8.5-10.1); CHLORIDE 103 MMOL/L (99-107); CREATININE 1.03 MG/DL (0.40-0.90); GLUCOSE 103 MG/DL (70-104); LIPASE 135 U/L (73-393); POTASSIUM 4.1 MMOL/L (3.5-5.1); SODIUM 139 MMOL/L (135-145); TOTAL CARBON DIOXIDE 24.9 MMOL/L (24-32); TOTAL PROTEIN 6.9 G/DL (6.4-8.2); eGFR 53 ML/MIN
[2021-09-01 18:51] LABS: CLARITY,URINE CLEAR (Clear); COLOR,URINE YELLOW (Yellow); GLUCOSE, URINE 500 mg/dl (Neg); KETONES,URINE NEGATIVE (Neg); LEUKOCYTE ESTERASE ,URINE NEGATIVE (Neg); NITRITES, URINE NEGATIVE (Neg); OCCULT BLOOD,URINE NEGATIVE (Neg); PROTEIN,URINE NEGATIVE (Neg); UROBILINOGEN,URINE 0.2 E.U/dL (0.2-1.0)
[2021-09-01 18:56] LABS: UA COLLECTION TYPE NON-SPECIFIED
[2021-09-01] MEDS ORDERED: CYCL-1 PO (19:08)
[2021-09-01] MEDS ORDERED: LIDO700A32 TOP (19:08)
[2021-09-01 19:40] VITALS: BP 141/72
[2021-09-02] MEDS ORDERED: ORPH100T2 PO (14:17)
== END 2021-09-01 19:49 | disposition home or self-care (01) ==
LOC: ER 15:34
DX: R10.84 Generalized abdominal pain (principal); E78.00 Pure hypercholesterolemia, unspecified; I10 Essential (primary) hypertension; J45.909 Unspecified asthma, uncomplicated; K21.9 Gastro-esophageal reflux disease without esophagitis; E11.9 Type 2 diabetes mellitus without complications; M19.90 Unspecified osteoarthritis, unspecified site; G89.29 Other chronic pain; Z87.442 Personal history of urinary calculi; Z90.89 Acquired absence of other organs; Z90.49 Acquired absence of other specified parts of digestive tract; Z90.710 Acquired absence of both cervix and uterus; Z98.890 Other specified postprocedural states; Z88.1 Allergy status to other antibiotic agents; Z88.8 Allergy status to other drugs, medicaments and biological substances; Z79.2 Long term (current) use of antibiotics; Z79.899 Other long term (current) drug therapy
CPT/HCPCS: 36415; 80053; 81003; 83690; 85025; 96372; 96374; 99284; J1885; J2360

== ENCOUNTER 2021-09-02 13:29 | Emergency (ER) | payer MEDICARE, MEDICAID ==
[~2021-09-02] VITALS: Ht 165.1 cm; Wt 111.3 kg
[~2021-09-02 13:29] MED LIST changes: +LIDO700A32 TOP
[2021-09-02] MEDS ORDERED: LIDOcaine 5% patch TP STA (14:04)
[2021-09-02] MEDS ORDERED: orphenadrine citrate 60mg/2ml inj. IM ONE (14:05)
[2021-09-02] MEDS ORDERED: ORPH100T2 PO (14:17)
[2021-09-02 14:52] VITALS: BP 120/78
== END 2021-09-02 15:50 | disposition home or self-care (01) ==
LOC: ER 13:30
DX: M62.830 Muscle spasm of back (principal); M54.50 Low back pain, unspecified; G89.29 Other chronic pain; R10.84 Generalized abdominal pain; K59.00 Constipation, unspecified; E78.00 Pure hypercholesterolemia, unspecified; I10 Essential (primary) hypertension; J45.909 Unspecified asthma, uncomplicated; K21.9 Gastro-esophageal reflux disease without esophagitis; E11.9 Type 2 diabetes mellitus without complications; M19.90 Unspecified osteoarthritis, unspecified site; Z87.442 Personal history of urinary calculi; Z90.89 Acquired absence of other organs; Z90.49 Acquired absence of other specified parts of digestive tract; Z90.710 Acquired absence of both cervix and uterus; Z98.890 Other specified postprocedural states; Z88.1 Allergy status to other antibiotic agents; Z88.8 Allergy status to other drugs, medicaments and biological substances; Z79.2 Long term (current) use of antibiotics; Z79.899 Other long term (current) drug therapy
CPT/HCPCS: 96372; 99283; J2360

== ENCOUNTER 2022-05-20 16:06 | Inpatient (IN) | payer MEDICARE, MEDICAID ==
[~2022-05-20] VITALS: Ht 165.1 cm; Wt 100.0 kg
[~2022-05-20 16:06] MED LIST changes: -HYDR-3965 PO; +OMEP20TA43 PO; -OMEP20TA5 PO; +ORPH100T2 PO
[2022-05-20 18:00] LABS: MEAN CORPUSCULAR HEMOGLOBIN 31.1 PG (27.0-31.0)
[2022-05-20 18:02] LABS: BASOPHILS # (AUTO) 0.1 X10'3 (0-0.2); EOSINOPHILS # (AUTO) 0.2 X10'3 (0-0.9); EOSINOPHILS % (AUTO) 3.2 % (0-6); HEMATOCRIT 41.4 % (35.0-45.0); HEMOGLOBIN 14.1 g/dl (12.0-16.0); LYMPHOCYTES # (AUTO) 1.6 X10'3 (1.1-4.8); LYMPHOCYTES % (AUTO) 23.3 % (21-51); MEAN CORPUSCULAR VOLUME 91.6 FL (78-98); MEAN PLATELET VOLUME 7.1 FL (7.4-10.4); MONOCYTES # (AUTO) 0.8 X10'3 (0-0.9); MONOCYTES % (AUTO) 12.5 % (2-12); PLATELET COUNT 264 X10'3 (140-440); RED BLOOD COUNT 4.52 X10'6 (4.20-5.60); WHITE BLOOD COUNT 6.7 X10'3 (4.5-11.0)
[2022-05-20 18:05] LABS: ALANINE AMINOTRANSFERASE 25 U/L (12-78); ALBUMIN/GLOBULIN RATIO 1.3 (1.1-1.5); ALKALINE PHOSPHATASE 88 IU/L (46-116); ANION GAP 9 (8-16); ASPARTATE AMINO TRANSFERASE 14 U/L (10-37); BILIRUBIN,TOTAL 0.3 MG/DL (0.1-1.0); BLOOD UREA NITROGEN 25 MG/DL (7-18); BUN/CREATININE RATIO 22.7 (6.6-38.0); CALCIUM 8.9 MG/DL (8.5-10.1); CHLORIDE 104 MMOL/L (99-107); GLUCOSE 87 MG/DL (70-104); POTASSIUM 3.9 MMOL/L (3.5-5.1); SODIUM 138 MMOL/L (135-145); eGFR 49 ML/MIN
[2022-05-21] VITALS (9 sets, daily range): BP systolic 113–144; BP diastolic 60–76
[2022-05-21] MEDS ORDERED: magnesium 4gm in 100ml NS 100 ML IV PRN (02:30)
[2022-05-21] MEDS ORDERED: potassium CL 10mEq/100ml bag 100 ML IV PRN (02:30)
[2022-05-21] MEDS ORDERED: magnesium 2GM in 50ml NS 50 ML IV PRN (02:30)
[2022-05-21] MEDS ORDERED: magnesium Cl slow-release 64mg tablet PO PRN (02:30)
[2022-05-21] MEDS ORDERED: HYDROcodone/acetaminophen 10/325mg tab PO PRN (02:30)
[2022-05-21] MEDS ORDERED: acetaminophen 325mg tablet PO PRN ×2 (02:30)
[2022-05-21] MEDS ORDERED: ondansetron/PF 4mg/2ml inj IV PRN (02:30)
[2022-05-21] MEDS ORDERED: POTASSIUM BICARB 20meq eff tab 20 MEQ TABLET.EFF PO PRN ×2 (02:30)
[2022-05-21] MEDS ORDERED: HYDROcodone/acetaminophen 5mg/325mg tablet PO PRN (02:30)
[2022-05-21] MEDS ORDERED: morphine 2 MG/ML inj. syringe IV PRN ×2 (02:30)
[2022-05-21] MEDS: normal saline 1000ml 1,000 ML IV SCH ×2 (03:06→12:30)
[2022-05-21] MEDS ORDERED: PRAV20TA4 PO (04:04)
[2022-05-21] MEDS ORDERED: pantoprazole 40mg Tablet.DR PO SCH (07:30)
[2022-05-21] MEDS ORDERED: K and/or MAG REPLACEMENT MC SCH (08:00)
[2022-05-21] MEDS ORDERED: heparin, porcine 5000 units/ml vial SQ SCH (08:00)
--- NOTE | 2022-05-21 08:59 | NUR ---
pt to Nuc Med for stress test, on monitor with RN
--- NOTE | 2022-05-21 12:30 | NUR ---
PT TO STRESS LAB TO COMPLETE NUC MED TEST, SR ON MONITOR, NO ECTOPY, HR 76, RR 18
[2022-05-21] MEDS ORDERED: regadenoson 0.4mg/5ml syringe IV ONE (12:45)
--- NOTE | 2022-05-21 13:57 | NUR ---
PT BACK TO ROOM 1, STRESS TEST COMPLETED
[2022-05-21] MEDS ORDERED: HYDR25TA5 PO (15:36)
--- NOTE | 2022-05-21 16:20 | NUR ---
Pt given and understands d/c instructions.
[2022-05-21] MEDS ORDERED: budesonide 0.5mg/2ml UD nebule IH SCH (20:00)
[2022-05-21] MEDS ORDERED: citalopram 20mg tablet PO SCH (21:00)
[2022-05-21] MEDS ORDERED: temazepam 15mg capsule PO PRN (21:00)
[2022-05-22] MEDS ORDERED: pantoprazole 40mg Tablet.DR PO SCH (08:00)
[2022-05-22] MEDS ORDERED: fluticasone nasal spray 16GM bottle NS SCH (08:00)
[2022-05-22] MEDS ORDERED: montelukast 10mg tablet PO SCH (08:00)
[2022-05-22] MEDS ORDERED: albuterol 2.5 MG/3 ML nebule NEB SCH (08:00)
[2022-05-22] MEDS ORDERED: mirabegron 25mg ER tablet PO SCH (08:00)
[2022-05-22] MEDS ORDERED: atorvastatin 10mg tablet PO SCH (08:00)
[2022-05-22] MEDS ORDERED: triamterene/HCTZ 37.5/25mg tablet PO SCH (08:00)
[2022-05-22] MEDS ORDERED: levoTHYROXINE 125mcg tablet PO SCH (08:00)
== END 2022-05-21 16:39 | disposition home or self-care (01) | DRG 313 ==
LOC: ER 16:07 → ED HOLD 05-21 02:33
PROVIDERS: ADMIT Internal Medicine; ATTEND Internal Medicine
PROC: 4A02XM4 Measurement of Cardiac Total Activity, External Approach (ICD-10-PCS; principal; 2022-05-21)
PROC: 3E033HZ Introduction of Radioactive Substance into Peripheral Vein, Percutaneous Approach (ICD-10-PCS; 2022-05-21)
DX: R07.89 Other chest pain (principal); Z88.8 Allergy status to other drugs, medicaments and biological substances; E03.9 Hypothyroidism, unspecified; E11.22 Type 2 diabetes mellitus with diabetic chronic kidney disease; E66.01 Morbid (severe) obesity due to excess calories; E78.00 Pure hypercholesterolemia, unspecified; F32.A Depression, unspecified; K21.9 Gastro-esophageal reflux disease without esophagitis; M54.9 Dorsalgia, unspecified; Z60.2 Problems related to living alone; G89.4 Chronic pain syndrome; I12.9 Hypertensive chronic kidney disease with stage 1 through stage 4 chronic kidney disease, or unspecified chronic kidney disease; J45.909 Unspecified asthma, uncomplicated; M19.90 Unspecified osteoarthritis, unspecified site; N18.30 Chronic kidney disease, stage 3 unspecified; Z87.442 Personal history of urinary calculi; Z68.36 Body mass index [BMI] 36.0-36.9, adult; Z90.710 Acquired absence of both cervix and uterus; Z90.49 Acquired absence of other specified parts of digestive tract
CPT/HCPCS: 36415; 71045; 78452; 80053; 83880; 84484; 85025; 85379; 93005; 93017; 93306; 99285; A9500; G0378; J1644; J2785; J7030

== ENCOUNTER 2023-05-16 18:09 | Emergency (ER) | payer MEDICARE, MEDICAID ==
[~2023-05-16] VITALS: Ht 162.6 cm; Wt 100.5 kg
[~2023-05-16 18:09] MED LIST changes: -ALBU2.5V13 NEB; -ALLO300T2 PO; -CIPR-260 PO; -CYCL-1 PO; -DICY20TA12 PO; -FENO145T26 PO; +HYDR25TA5 PO; -LIDO700A32 TOP; -MAX25Tt PO; -ORPH100T2 PO; +PRAV20TA4 PO
[2023-05-16 18:52] VITALS: BP 147/95; PULSE 76; RESP 16; TEMP 98.1; O2SAT 97
== END 2023-05-16 20:12 | disposition left against medical advice (07) ==
LOC: ER 18:10
DX: K59.00 Constipation, unspecified (principal); Z53.21 Procedure and treatment not carried out due to patient leaving prior to being seen by health care provider
CPT/HCPCS: 99281

== ENCOUNTER 2024-01-09 17:49 | Emergency (ER) | payer MEDICARE, MEDICAID ==
[~2024-01-09] VITALS: Ht 162.6 cm; Wt 102.1 kg
[2024-01-09 17:56] VITALS: BP 170/89; PULSE 87; RESP 16; TEMP 96.7; O2SAT 98
[2024-01-09 18:50] LABS: BASOPHILS # (AUTO) 0.1 X10'3 (0-0.2); EOSINOPHILS # (AUTO) 0.2 X10'3 (0-0.9); EOSINOPHILS % (AUTO) 2.3 % (0-6); HEMATOCRIT 41.4 % (35.0-45.0); HEMOGLOBIN 14.3 g/dl (12.0-16.0); LYMPHOCYTES # (AUTO) 1.7 X10'3 (1.1-4.8); LYMPHOCYTES % (AUTO) 25.4 % (21-51); MEAN CORPUSCULAR HEMOGLOBIN 31.8 PG (27.0-31.0); MEAN CORPUSCULAR HGB CONC 34.5 g/dL (33.0-36.5); MEAN CORPUSCULAR VOLUME 92.3 FL (78-98); MEAN PLATELET VOLUME 7.2 FL (7.4-10.4); MONOCYTES # (AUTO) 0.8 X10'3 (0-0.9); MONOCYTES % (AUTO) 11.6 % (2-12); NEUTROPHILS # (AUTO) 4.1 X10'3 (1.8-7.7); NEUTROPHILS % (AUTO) 59.7 % (42-75); PLATELET COUNT 298 X10'3 (140-440); RED BLOOD COUNT 4.49 X10'6 (4.20-5.60); RED CELL DISTRIBUTION WIDTH 14.9 % (11.5-14.5); WHITE BLOOD COUNT 6.8 X10'3 (4.5-11.0)
[2024-01-09 19:08] LABS: ALANINE AMINOTRANSFERASE 35 U/L (12-78); ALBUMIN 3.7 G/DL (3.4-5.0); ALBUMIN/GLOBULIN RATIO 1.1 (1.1-1.5); ALKALINE PHOSPHATASE 119 IU/L (46-116); AMYLASE 54 U/L (25-115); ANION GAP 13 (8-16); ASPARTATE AMINO TRANSFERASE 17 U/L (10-37); BILIRUBIN,TOTAL 0.3 MG/DL (0.1-1.0); BLOOD UREA NITROGEN 30 MG/DL (7-18); BUN/CREATININE RATIO 27.8 (10.0-20.0); CALCIUM 9.1 MG/DL (8.5-10.1); CHLORIDE 103 MMOL/L (99-107); CREATININE 1.08 MG/DL (0.40-0.90); LIPASE 57 U/L (16-77); SODIUM 141 MMOL/L (135-145); TOTAL CARBON DIOXIDE 25.4 MMOL/L (24-32); eCRCL 39 ML/MIN; eGFR 49 ML/MIN
[2024-01-09 19:13] LABS: GLUCOSE 135 MG/DL (70-104)
[2024-01-09 20:10] LABS: BILIRUBIN,URINE NEGATIVE (Neg); CLARITY,URINE CLEAR (Clear); COLOR,URINE YELLOW (Yellow); GLUCOSE, URINE NEGATIVE (Neg); KETONES,URINE NEGATIVE (Neg); LEUKOCYTE ESTERASE ,URINE NEGATIVE (Neg); NITRITES, URINE NEGATIVE (Neg); OCCULT BLOOD,URINE NEGATIVE (Neg); PROTEIN,URINE NEGATIVE (Neg); UROBILINOGEN,URINE 0.2 E.U/dL (0.2-1.0)
[2024-01-09 20:17] LABS: UA COLLECTION TYPE CLN CATCH MIDSTREAM
== END 2024-01-09 20:26 | disposition home or self-care (01) ==
LOC: ER 17:51
DX: R10.32 Left lower quadrant pain (principal); E78.00 Pure hypercholesterolemia, unspecified; I10 Essential (primary) hypertension; J45.909 Unspecified asthma, uncomplicated; K21.9 Gastro-esophageal reflux disease without esophagitis; E11.9 Type 2 diabetes mellitus without complications; M19.90 Unspecified osteoarthritis, unspecified site; G89.29 Other chronic pain; M54.9 Dorsalgia, unspecified; Z90.49 Acquired absence of other specified parts of digestive tract; Z90.710 Acquired absence of both cervix and uterus; E78.5 Hyperlipidemia, unspecified; Z88.2 Allergy status to sulfonamides; Z88.8 Allergy status to other drugs, medicaments and biological substances
CPT/HCPCS: 36415; 80053; 81003; 82150; 83690; 85025; 99283